=== PATIENT | male | born 1980 | race Caucasian/White ===

== ENCOUNTER → 2023-07-21 10:29 | Outpatient (BNVA) | payer MEDICAID, SELFPAY | PROVIDERS: Visit Provider Physician Assistant | DX: M47.816 Spondylosis without myelopathy or radiculopathy, lumbar region (principal) | CPT/HCPCS: 72110 ==

== ENCOUNTER 2023-08-04 06:00 | Outpatient (RCR) | payer MEDICAID, SELFPAY | END 2023-08-24 23:59 | disposition home or self-care (01) | LOC: WPT 06:00 | PROVIDERS: Visit Provider Physician Assistant | DX: M54.50 Low back pain, unspecified (principal); G89.29 Other chronic pain | CPT/HCPCS: 97161 ==

== ENCOUNTER → 2023-09-30 09:43 | Outpatient (BNVA) | payer MEDICAID, SELFPAY | PROVIDERS: PCP Nurse Practitioner Family; Visit Provider Nurse Practitioner Family | DX: C44.209 Unspecified malignant neoplasm of skin of left ear and external auricular canal (principal); K29.70 Gastritis, unspecified, without bleeding; Z79.899 Other long term (current) drug therapy; Z13.6 Encounter for screening for cardiovascular disorders; E55.9 Vitamin D deficiency, unspecified; M54.50 Low back pain, unspecified; M79.604 Pain in right leg; M79.605 Pain in left leg | CPT/HCPCS: 80053; 80061; 81003; 82306; 83036; 84439; 84443; 84481; 85025; 86376 ==

== ENCOUNTER 2023-10-18 09:54 | Outpatient (CLI) | payer MEDICAID, SELFPAY ==
--- NOTE | 2023-10-18 10:15 | MR_ITS ---
WS: [id number] MRI LUMBAR SPINE NONCONTRAST HISTORY: back pain COMPARISON: None available. TECHNIQUE: Sagittal and axial multisequence imaging is submitted. Very small central disc protrusion at T7-8. Mild straightening of the normal lumbar lordosis. Disc spaces are well-maintained. No fractures. Conus terminates normally at L1-2 disc level. L1-L2: Normal. L2-L3: Mild facet arthritis. No stenosis. L3-L4: Mild annular disc bulging with mild ligamentum flavum and facet arthritis. No stenosis. L4-L5: Annular disc bulging with a central disc protrusion encroaching upon the ventral thecal sac. M ild bilateral central and subarticular recess encroachment. Mild encroachment upon the traversing L5 nerve roots. There is also mild bilateral foraminal stenosis with the disc contacting the exiting L4 nerve roots. L5-S1: Mild annular disc bulging encroaching upon the subarticular recesses. Shallow RIGHT foraminal disc protrusion with annular fissure contacting the RIGHT exiting L5 nerve root. Mild RIGHT foraminal stenosis. Visualized retroperitoneum is negative. IMPRESSION: 1. RIGHT foraminal disc protrusion with annular fissure at L5-S1 with contact on the exiting RIGHT L 5 nerve root. 2. Mild annular disc bulging at L3-4 and L5-S1. 3. L4-5: Central disc protrusion and facet arthritis. Mild central and bilateral subarticular recess encroachment. There is mild disc contact on the traversing L5 nerve roots and mild bilateral foramin al stenosis.
== END 2023-10-18 09:55 | disposition home or self-care (01) ==
LOC: RAD 09:54
PROVIDERS: PCP Nurse Practitioner Family; Visit Provider Orthopaedic Surgery
DX: M54.50 Low back pain, unspecified (principal); M79.604 Pain in right leg; M79.605 Pain in left leg; M51.37 Other intervertebral disc degeneration, lumbosacral region; M48.07 Spinal stenosis, lumbosacral region
CPT/HCPCS: 72148

== ENCOUNTER → 2023-12-22 13:15 | Outpatient (BNVA) | payer MEDICAID, SELFPAY | PROVIDERS: PCP Nurse Practitioner Family; Visit Provider Orthopaedic Surgery | DX: M54.2 Cervicalgia (principal) | CPT/HCPCS: 72050 ==

== ENCOUNTER → 2024-01-03 14:47 | Outpatient (BNVA) | payer MEDICAID, SELFPAY | PROVIDERS: PCP Nurse Practitioner Family; Visit Provider Orthopaedic Surgery | DX: M54.9 Dorsalgia, unspecified (principal); M48.062 Spinal stenosis, lumbar region with neurogenic claudication; M51.16 Intervertebral disc disorders with radiculopathy, lumbar region; Z79.899 Other long term (current) drug therapy | CPT/HCPCS: 36415; 80053; 81003; 85025 ==

== ENCOUNTER 2024-01-12 08:45 | Outpatient (CLI) | payer MEDICAID, SELFPAY ==
--- NOTE | 2024-01-12 08:45 | MR_ITS ---
WS: [id number] MRI CERVICAL SPINE NONCONTRAST TECHNIQUE: Sagittal T1, T2 and STIR imaging. Axial T2, gradient, and fiesta imaging. CLINICAL INFORMATION: neck pain COMPARISON: None. FINDINGS: Straightening of the normal cervical lordosis. Cord signal is normal. Mild disc bulging at C3-C4 C4-C 5 C5-C6 and C6-C7. C2-C3: Normal. C3-C4: Shallow central protrusion with mild central canal stenosis and slight contact of the cervical cord. Mild facet arthropathy. Mild LEFT foraminal narrowing. C4-C5: Mild central canal stenosis with LEFT paracentral protrusion with slight indentation of the LE FT ventral cervical cord. Moderate LEFT foraminal narrowing. Moderate facet arthropathy. C5-C6: Mild to moderate central canal stenosis with disc osteophyte complex with slight indentation o n the central and LEFT paracentral cervical cord. Severe LEFT bony foraminal narrowing. Uncovertebral joint hypertrophy. Mild RIGHT bony foraminal narrowing. Moderate facet arthropathy. C6-C7: Shallow central disc bulging with a tiny annular fissure. Spinal canal and foramen are patent. C7-T1: Normal. Visualized brain stem structures: Normal. Prevertebral soft tissues: Normal. MR/MR cervical spin wo con* [id number] IMPRESSION: 1. Straightening of the normal cervical lordosis. Cord signal is normal. 2. Mild central canal stenosis C3-C4 and C4-C5. Slight indentation of the LEFT ventral cervical cord at C4-5 with LEFT paracentral protrusion. 3. Mild to moderate central canal stenosis C5-C6 with disc osteophyte complex and slight indentation of the cervical cord. 4. Moderate LEFT C4-5 and severe LEFT C5-C6 bony foraminal narrowing.
== END 2024-01-12 08:46 | disposition home or self-care (01) ==
PROVIDERS: PCP Nurse Practitioner Family; Visit Provider Orthopaedic Surgery
DX: M48.02 Spinal stenosis, cervical region (principal); M54.2 Cervicalgia
CPT/HCPCS: 72141

== ENCOUNTER 2024-02-09 12:06 | Emergency (ER) | payer MEDICAID, SELFPAY ==
[2024-02-09 12:37] VITALS: BP 124/85; PULSE 72; TEMP 37.4; O2SAT 98; BMI 25.0
--- NOTE | 2024-02-09 14:48 | W.ED.BACK ---
HPI - Back Pain/Injury General: Chief Complaint: Back Pain/Injury Stated Complaint: back pain, left side numbness Time Seen by Provider: 02/09/24 14:40 History of Present Illness: 43-year-old male patient comes in today with low back pain. Patient has an extensive history of intervertebral disc disease of his neck and lumbar spine. Patient is actually scheduled to have surgery in 1 week for his low back. Patient reports that he woke up this morning and was bending down to corn picker something off the floor and had a sudden sharp pain on the left side of his back. Patient denies any loss of bowel or bladder control. Patient appears nontoxic. Patient appears in mild to moderate pain. Patient is guarding with movement. Review of Systems General: Reports: 10 or more systems reviewed and unremarkable except in HPI and below Musc: Reports: back pain PFSH ED PFSH: Medical History Vitamin D deficiency Medication management Cancer of skin of left ear Skin cancer Gastritis Family History Mother Pancreatic cancer Father Skin cancer CAD (coronary artery disease) Thyroid cancer Social History Smoking and tobacco/nicotine status: former use of tobacco/nicotine Physical Exam Const: COMMON NORMALS: alert HENMT: COMMON NORMALS: normocephalic HEAD & SCALP: normocephalic Neck/C-Spine: COMMON NORMALS: full ROM Resp: COMMON NORMALS: normal respiratory effort and clear to auscultation bilaterally AUSCULTATION: clear to auscultation bilaterally Cardio: COMMON NORMALS: regular rate RATE: regular rate GI: COMMON NORMALS: Soft to palpation and non-tender PALPATION: Yes Soft to palpation Back/Pelvis: LUMBAR SPINE/LOWER BACK: No lumbar spinal tenderness and Yes paraspinal muscle tenderness Extremity: COMMON NORMALS: normal to inspection Neuro: SENSORIUM/ORIENTATION: Yes alert Skin: COMMON NORMALS: turgor normal GENERAL SKIN EXAM: turgor normal Course Vital Signs: Vital signs: Vital Signs Temperature 99.3 F 02/09/24 12:37 Pulse Rate 72 02/09/24 12:37 Blood Pressure 124/85 02/09/24 12:37 Pulse Oximetry 98 02/09/24 12:37 Oxygen Delivery Me thod Room Air 02/09/24 12:37 MDM - Back Pain/Injury Medical Decision Making 43-year-old male patient comes in today for complaints of a sharp pain in his back when he bent down to get something off the floor. Patient has a history of intervertebral disc disease and is scheduled for surgery with Dr. Parada. On exam patient appears in mild to moderate pain. Patient appears nontoxic. Respirations are even lungs are clear to auscultation. Skin is warm and dry. Vital signs are normal. Differential diagnosis lumbar strain, intervertebral disc disease, facet arthropathy. Patient was given a injection of ketorolac 30 mg once and 2 mg of Ativan. This was for pain and muscle relaxation. Patient be continued on diclofenac and methocarbamol. Patient was recommended to follow back up with Dr. Parada as scheduled. No falls were reported and no imaging was performed. No radiology studies performed this visit Discharge Plan Discharge Patient Disposition: Home Clinical Impression: Strain of lumbar region Qualifiers: Encounter type: initial encounter Qualified Code(s): S39.012A - Strain of muscle, fascia and tendon of lower back, initial encounter Condition: Stable Prescriptions: New diclofenac sodium 75 mg tablet,delayed release (DR/EC) 75 mg PO BID Qty: 14 0RF Rx Instructions: hold ibuprofen while using medication methocarbamol 750 mg tablet 750 mg PO Q6H PRN (Reason: back pain, muscle spasm) Qty: 30 0RF No Action omeprazole 20 mg capsule,delayed release(DR/EC) See Rx Instructions .ROUTE .COMPLEX Qty: 30 0RF Dose Instruction: TAKE 1 CAPSULE BY MOUTH DAILY Rx Instructions: TAKE 1 CAPSULE BY MOUTH DAILY ibuprofen 800 mg tablet See Rx Instructions .ROUTE .COMPLEX Qty: 60 0RF Dose Instruction: TAKE 1 TABLET BY MOUTH EVERY 8 HOURS Rx Instructions: TAKE 1 TABLET BY MOUTH EVERY 8 HOURS Discharge Orders: Discharge ED (Routine); Ordered 02/09/24 Ordered By: Jose Calzada Referrals: AURELIA Magdaleno, DIRECTOR OF PRODUCT DEVELOPMENT [Primary Care Provider] - Discharge Diet: Usual diet Discharge Activity: Increase activity as tolerated Patient Instructions: Back Pain (ED) Activity Restrictions/Additional Instructions: Try to maintain normal activity is much as possible. Gentle stretching and range of motion exercises. Drink plenty of water and fluids. Continue care with Dr. Parada as directed. 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
[2024-02-09] MEDS: LORazepam 2 mg/mL INJ 1 mL IM (15:17)
[2024-02-09] MEDS: ketorolac 30 mg/mL INJ IM (15:17)
[2024-02-09 15:49] VITALS: BP 121/82; PULSE 69; RESP 16; TEMP 37.4; O2SAT 99
== END 2024-02-09 15:39 | disposition home or self-care (01) ==
PROVIDERS: Emergency Provider Nurse Practitioner Family; PCP Nurse Practitioner Family
DX: S39.012A Strain of muscle, fascia and tendon of lower back, initial encounter (principal); Z87.891 Personal history of nicotine dependence; X50.1XXA Overexertion from prolonged static or awkward postures, initial encounter
CPT/HCPCS: 96372; 99284; J1885; J2060

== ENCOUNTER → 2024-02-10 09:55 | Outpatient (BNVA) | payer MEDICAID, SELFPAY | PROVIDERS: PCP Nurse Practitioner Family; Visit Provider Family Medicine | DX: Z01.818 Encounter for other preprocedural examination (principal) | CPT/HCPCS: 80048; 81003; 85025 ==

== ENCOUNTER 2024-02-15 06:37 | Day surgery (SDC) | payer MEDICAID, SELFPAY ==
[2024-02-15] VITALS (15 sets, daily range): BP systolic 113–135; BP diastolic 63–89; PULSE 73–106; RESP 8–25; TEMP 36.6–36.9; O2SAT 94–100
[2024-02-15] MEDS: sodium chloride 0.9% 1,000 ML 30 ML IV (07:19)
--- NOTE | 2024-02-15 08:14 | ANES.PREANE2 ---
Pre-Anesthetic Assessment Height/Weight: Height 1.83 m Weight 83.915 kg Temp Pulse Resp BP Pulse Ox O2 Del Method 98.5 F 80 16 114/89 98 Room Air 02/15/24 07:08 02/15/24 07:08 02/15/24 07:08 02/15/24 07:08 02/15/24 07:08 02/15/24 07:08 Preop Diagnosis: Lumbar stenosis with neurogenic claudication Operation Date: 02/15/24 08:55 Proposed Procedures p Lumbar Spine Decompression Lumbar Decompression(Not Applicable) - Sachin Parada, DO Familial anesthetic complications: None Was Beta Trevor taken within 24 hours: N/A Was Clonidine taken within 24 hours: N/A Last intake: Intake Last Liquid Date 02/14/24 Last Liquid Time 22:00 Last Solid Date 02/14/24 Last Solid Time 21:00 Social Tobacco (vapes) and No alcohol Exam alert, oriented x 3, clear to auscultation bilaterally and regular rate & rhythm GI Patient and state he vomits and gags a lot and has trouble with his stomach, not necessarily related to nausea ( it comes out of the blue ); order for pepcid, bicitra, and reglan pre-op Anesthetic Plan ASA status: 2 Anesthesia: General Risk of > 500 ml blood loss (7ml/kg in children): No Medications/Allergies Home Medications Medication Instructions Recorded Confirmed Last Taken Type diclofenac sodium 75 mg 75 mg PO BID #14 tabs 02/09/24 02/15/24 Unknown Rx tablet,delayed release methocarbamol 750 mg tablet 750 mg PO Q6H PRN back pain, 02/09/24 02/15/24 02/13/24 Rx muscle spasm #30 tabs ibuprofen 800 mg tablet 800 mg PO TID 02/14/24 02/15/24 02/14/24 History omeprazole 20 mg capsule,delayed 20 mg PO DAILY 02/14/24 02/15/24 02/14/24 History release Allergies Allergy/AdvReac Type Severity Reaction Status Date / Time No Known Allergies Allergy Verified 02/14/24 12:33 Current Medications Generic Name Dose Route Start Last Admin Trade Name Freq PRN Reason Stop Dose Admin Sodium Chloride 1,000 mls @ 30 mls/hr 02/15/24 06:45 02/15/24 07:19 Sodium Chloride 0.9% IV 02/16/24 06:44 30 mls/hr .Q24H FRANCISCA Administration PFSH Anesthesia Medical History Vitamin D deficiency Medication management Cancer of skin of left ear Skin cancer Gastritis Family History Mother Pancreatic cancer Father Skin cancer CAD (coronary artery disease) Thyroid cancer Social History Smoking and tobacco/nicotine status: current every day tobacco/nicotine user (vapes) Data Anesthesia Cardiac Studies: No Data to Display
[2024-02-15] MEDS: citric acid-sodium citrate 30 mL UDC PO (08:19)
[2024-02-15] MEDS: famotidine 20 mg/2 mL INJ IVP (08:21)
[2024-02-15] MEDS: metoclopramide 5 mg/mL SDV 2 mL 10 MG IVP (08:24)
--- NOTE | 2024-02-15 08:46 | W.PM.OPSUD ---
Surgery/Procedure H&P Update DATE OF PROCEDURE: February 15, 2024 DATE H&P PERFORMED: 02/10/24 H&P UPDATE INFORMATION: I have reviewed H&P completed within last 30 days, I have examined patient prior to procedure and No changes to prior documentation PREOP DIAGNOSIS: Lumbar stenosis with neurogenic claudication PLANNED PROCEDURE: Operation Date: 02/15/24 08:55 Proposed Procedures p Lumbar Spine Decompression Lumbar Decompression(Not Applicable) - Sachin Parada DO
[2024-02-15] MEDS: ceFAZolin 2,000 MG in sodium chloride 0.9% (plus) 50 ML 100 MG IV (09:09)
[2024-02-15] MEDS: lidocaine-epi 1% 20 mL INJ INJECTION (09:47)
--- NOTE | 2024-02-15 10:36 | PM.OP ---
Operative Report Date of procedure: February 15, 2024 Pre-op diagnosis: Lumbar stenosis with neurogenic claudication Post-op diagnosis: same Procedure done: L4-5 laminectomy with partial facetectomy Surgeon: Sachin Parada DO Estimated blood loss (mL): 10 Procedure: L4-5 laminectomy with partial facetectomy Patient is brought to the operative suite. After undergoing anesthesia they are placed in the prone position. All areas of impingement are well padded. Patient is then prepped and draped in the normal sterile fashion. A skin incision is made over the L4-5 level. This is confirmed under c-arm guidance. A series of dilators are passed and the tubular retractor is docked on the L4 lamina. A bovie is used to clear the soft tissue off the lamina and the L 4/5 facet joint. A high speed bart is then used to perform the laminectomy and take down the medial aspect of the L 4/5 facet joint. A kerrison rongeure was then used to take down the remaining lamina and smooth the edge of the laminectomy up to the point where the ligamentum flavum attaches. Attention was then brought to the medial aspect of the facet joint. The remaining medial aspect of the superior and inferior aspect of the facet joint were taken down with the kerrison from the pedicle of L4 to L 5. The facet joint had significant hypertrophy. Attention was then brought to the Ligamentum Flavum. The ligament was taken down from the lamina of L4 to L5 and out medially to the remaining facet joint. The ligament was thick. The dura was then exposed. The dura was in good repair. The L4 nerve was then traced with a curette out the L4/5 foramen and found to be adequately decompressed. The L5 nerve was traced with a curette around the L5 pedicle. The lateral recess was opened with a kerrison helping to further decompress the L5 nerve. Wound is then irrigated copiously with saline and surgiflo is used to stop any bleeding. The tubular retractor is removed and the wound is closed with vicryl and monocryl suture. Glue is then used to protect the wound. A sterile dressing is then placed. Patient was then placed in the supine position and transferred to the PACU in stable condition.
[2024-02-15] MEDS: HYDROmorphone 1 mg/mL INJ 1 mL 0.5 MG IVP (10:54)
[2024-02-15] MEDS: HYDROcodone-acetaminophen 5-325 mg Tablet 2 TAB PO (11:39)
--- NOTE | 2024-02-15 12:00 | ANE.PACU2 ---
Inpatient post-anesthesia follow up: Airway intact: Yes Vital signs: Temperature 98.5 F Pulse Rate 79 Respiratory Rate 16 Blood Pressure 123/80 Pulse Oximetry 96 Oxygen Delivery Me thod Room Air Oxygen Flow Rate 8 Fraction of Inspir ed Oxygen Hydration adequate: Yes Nausea and vomiting: No Pain level: 1 Mental status: Baseline
--- NOTE | 2024-02-15 13:14 | XR_ITS ---
WS: [id number] XR lumbar spine 2-3V* [id number] REASON FOR EXAM: or pic, decompression FINDINGS: Surgical instrument overlying the right L4-L5 interspace. XR/XR lumbar spine 2-3V* [id number] IMPRESSION: Lumbar level localization and surgery as above.
== END 2024-02-15 12:00 | disposition home or self-care (01) ==
PROVIDERS: PCP Nurse Practitioner Family; Visit Provider Orthopaedic Surgery
PROC: (CPT 63005; principal; 2024-02-15 08:55)
DX: M48.062 Spinal stenosis, lumbar region with neurogenic claudication (principal); F17.290 Nicotine dependence, other tobacco product, uncomplicated
CPT/HCPCS: 63047; 72100; 76000; J0330; J0690; J1100; J1170; J2250; J2405; J2704; J2765; J3010; J3490; J7030

== ENCOUNTER → 2024-03-15 09:26 | Outpatient (BNVA) | payer MEDICAID, SELFPAY | PROVIDERS: PCP Nurse Practitioner Family; Visit Provider Nurse Practitioner Family | DX: R06.00 Dyspnea, unspecified (principal) | CPT/HCPCS: 71046 ==

== ENCOUNTER 2024-03-15 10:59 | Emergency (ER) | payer MEDICAID, SELFPAY ==
[2024-03-15 11:19] VITALS: BP 131/93; PULSE 93; RESP 16; TEMP 36.7; O2SAT 97; BMI 23.6
--- NOTE | 2024-03-15 11:56 | ECG_ITS ---
[facility] Test Date: 2024-03-15 Pat Name: Axel Quinn Department: Room: Gender: Male Paper Sheeter: : 1980 Requested By: Rob Souza Order Number: [id number] [place] MD: Korey Ozuna M.D. Measurements Intervals [place] Rate: 85 P: 0 MI: 0 QRS: 84 QRSD: 97 T: 70 QT: 326 QTc: 388 Interpretive Statements SINUS RHYTHM INCOMPLETE RIGHT BUNDLE BRANCH BLOCK [90+ ms QRS DURATION, TERMINAL R IN V1/V2, 40+ ms S IN I/aVL/V4/V5/V6] No previous ECG available for comparison Electronically Signed On 03-15-2024 18:30:24 CDT by Korey Ozuna M.D. [id number]
--- NOTE | 2024-03-15 11:57 | XR_ITS ---
WS: [id number] Portable AP upright chest, 03/15/2024 Clinical Data: dyspnea/cough Comparison: None. Findings: No nodules, masses or effusions are seen. The heart is normal. The pulmonary vascularity is not increased. No pneumonia or pneumothorax is seen. Monitor leads are on the chest wall. XR/XR chest 1V portable [id number] Impression: Negative chest.
[2024-03-15 12:18] LABS: Basophils # 0.1 10^3/uL (0.0-0.1); Eosinophils # 0.2 10^3/uL (0.0-0.8); Eosinophils % 2.8 %; Hematocrit 49.6 % (37-53); Lymphocytes # 1.7 10^3/uL (0.8-4.8); Lymphocytes % 24.6 %; Mean Corpuscular HGB Conc 33.5 g/dL (30-55); Mean Corpuscular Hemoglobin 29.9 pg (27-33); Mean Corpuscular Volume 89.2 fl (82-101); Mean Platelet Volume 9.2 fL (7.4-10.4); Monocytes # 0.6 10^3/uL (0.2-0.9); Monocytes % 8.6 %; Neutrophils # 4.43 10^3/uL (1.8-7.7); Neutrophils % 62.9 %; Nucleated Red Blood Cells % 0 %; Platelet Count 277 10^3/cmm (157-399); Red Blood Count 5.56 10^6/uL (3.85-5.65); Red Cell Distribution Width 11.6 % (12.1-15.1); White Blood Count 7.06 10^3/uL (3.29-11.43)
[2024-03-15 12:35] LABS: Alanine Aminotransferase 8 U/L (0-41); Albumin Level 4.4 g/dL (3.5-5.2); Alkaline Phosphatase 45 U/L (40-130); Anion Gap 15.8 (5-19); Aspartate Amino Transferase 14 U/L (0-40); Blood Urea Nitrogen 18 mg/dL (6-20); Calcium 8.9 mg/dL (8.5-10.5); Carbon Dioxide 26 mmol/L (22-29); Chloride 101 mmol/L (98-107); Creatinine Clr Calc Pharmacy 107.4288; Globulin 2.1 g/dL (1.3-4.6); Glomerular Filtration Rate 82.3 mL/min (90-130); Glucose 89 mg/dL (65-115); Osmolality Calculated 289 mOsm/kg (285-295); Potassium 3.8 mmol/L (3.5-5.1); Sodium 139 mmol/L (136-145); Total Bilirubin 0.8 mg/dL (0.15-1.2); Total Protein 6.5 g/dL (6.6-8.7); Troponin(5th) Baseline < 6 ng/L (0-15)
[2024-03-15 12:57] LABS: Charge for UA Resulting for Rev
--- NOTE | 2024-03-15 13:13 | W.ED.CHESTPA ---
HPI - Chest Pain General: Chief Complaint: Chest Pain Stated Complaint: sent from dr henderson ekg Time Seen by Provider: 03/15/24 11:56 History of Present Illness: 43-year-old male presents emergency room with complaints of chest pain shortness of breath and dizziness. He relates most of this anxiety has no known history of coronary artery disease or any arrhythmias. He went to his primary care doctors office they were concerned about an abnormal EKG and had him present to the emergency room. He has no chest pain at this time no shortness of breath at this time. No abdominal pain no dysuria urgency or frequency no nausea vomiting or diarrhea. Is not currently short of breath no recent fever sweats or chills or cough. He states he used to vape he thought that may be related to his symptoms so he has stopped vaping. Associated symptoms: Deny abdominal pain, dyspnea, fever(s) or palpitations Related Data Home Medications Medication Instructions Recorded Confirmed amoxicillin 875 mg-potassium 1 tab PO BID 03/15/24 03/15/24 clavulanate 125 mg tablet ibuprofen 800 mg tablet 800 mg PO Q8H PRN Pain 03/15/24 03/15/24 omeprazole 20 mg capsule,delayed 20 mg PO DAILY 03/15/24 03/15/24 release Previous Rx's Medication Instructions Recorded diclofenac sodium 75 mg 75 mg PO BID #14 tabs 02/09/24 tablet,delayed release methocarbamol 750 mg tablet 750 mg PO Q6H PRN back pain, 02/09/24 muscle spasm #30 tabs Bone growth stimulator #1 ea 02/22/24 alprazolam 0.25 mg tablet 0.25 mg PO DAILY PRN anxiety 30 03/15/24 days #30 tabs bupropion HCl 75 mg tablet 75 mg PO BID 30 days #60 tabs 03/15/24 Allergies Allergy/AdvReac Type Severity Reaction Status Date / Time No Known Allergies Allergy Verified 03/15/24 08:44 Review of Systems Const: Denies: fever(s) or chills Card: Reports: chest pain; Denies: palpitations, irregular heart rhythm, edema, swelling of feet/ankles or dyspnea on exertion Resp: Denies: dyspnea GI: Denies: abdominal pain : Denies: dysuria, urinary frequency or urinary urgency Musc: Denies: neck pain or back pain Skin/Breast: Denies: rash PFSH ED PFSH: Medical History (Updated 03/15/24 @ 14:56 by Rob Rouse DO) Shortness of breath Chest pain Anxiety and depression Anxiety Vitamin D deficiency Medication management Cancer of skin of left ear Skin cancer Gastritis Family History Mother Pancreatic cancer Father Skin cancer CAD (coronary artery disease) Thyroid cancer Social History Smoking and tobacco/nicotine status: never used tobacco/nicotine Physical Exam Const: COMMON NORMALS: no acute distress GENERAL APPEARANCE: cooperative and comfortable ORIENTATION/CONSCIOUSNESS: Yes awake, Yes oriented to person, Yes oriented to place and Yes oriented to time HENMT: COMMON NORMALS: normocephalic, atraumatic and hearing grossly normal bilaterally HEAD & SCALP: normocephalic and atraumatic Resp: COMMON NORMALS: normal respiratory effort, No retractions, No use of accessory muscles and clear to auscultation bilaterally AUSCULTATION: clear to auscultation bilaterally Cardio: COMMON NORMALS: regular rate, regular rhythm and No murmurs present (Cardio) RATE: regular rate RHYTHM: regular rhythm GI: COMMON NORMALS: Soft to palpation and No hepatosplenomegaly present AUSCULTATION: Yes normoactive bowel sounds PALPATION: Yes Soft to palpation, No Tenderness to palpation present (GI), No Guarding due to palpation present (GI) and Yes No hepatosplenomegaly present Extremity: COMMON NORMALS: normal to inspection, capillary refill normal, no clubbing, cyanosis or edema, no calf tenderness and no pedal edema Neuro: SENSORIUM/ORIENTATION: Yes oriented to person, Yes oriented to place and Yes oriented to time Skin: COMMON NORMALS: no rashes or lesions noted GENERAL SKIN EXAM: no rashes or lesions noted Course Vital Signs: Vital signs: Vital Signs Temperature 98.1 F 03/15/24 11:19 Pulse Rate 92 03/15/24 14:30 Respiratory Rate 16 03/15/24 11:19 Blood Pressure 124/83 03/15/24 14:30 Pulse Oximetry 98 03/15/24 14:30 Oxygen Delivery Me thod Room Air 03/15/24 13:18 MDM - Chest Pain Medical Decision Making Patient directed here by his primary care doctor he did have right bundle branch block computer read the first EKG is having 10-year-old flutter I do not believe that is the case there were P waves present while he was here he remains in a normal sinus rhythm. He does occasionally get palpitations troponins are negative is not having any further symptoms he states he is intermittently had these symptoms for some time which usually is related to anxiety. At this point I think we can discharge the patient home he does not have any acute coronary syndrome on evaluation. Chest x-ray was normal his other symptoms of dizziness and shortness of breath are associated with that chest discomfort he reported. Will set him up for an outpatient cardiac stress test as well as a 72-hour Holter monitor to evaluate for arrhythmias Medical Records I reviewed the patient's medical records. Lab Data I reviewed the patient's lab results. 03/15/24 12:01 03/15/24 12:01 Radiology Impressions Chest X-Ray 03/15/24 11:57 Impression: Negative chest. Laboratory Results WBC 7.06 10^3/uL (3.29-11.43) 03/15/24 12:01 RBC 5.56 10^6/uL (3.85-5.65) 03/15/24 12:01 Hgb 16.60 g/dL (11.27-16.99) 03/15/24 12:01 Hct 49.6 % (37-53) 03/15/24 12:01 MCV 89.2 fl (82-101) 03/15/24 12:01 MCH 29.9 pg (27-33) 03/15/24 12:01 MCHC 33.5 g/dL (30-55) 03/15/24 12:01 RDW 11.6 % (12.1-15.1) L 03/15/24 12:01 Plt Count 277 10^3/cmm (157-399) 03/15/24 12:01 MPV 9.2 fL (7.4-10.4) 03/15/24 12:01 Neut % (Auto) 62.9 % 03/15/24 12:01 Lymph % (Auto) 24.6 % 03/15/24 12:01 Mccone % (Auto) 8.6 % 03/15/24 12:01 Eos % (Auto) 2.8 % 03/15/24 12:01 Baso % (Auto) 1.0 % 03/15/24 12:01 Neut # (Auto) 4.43 10^3/uL (1.8-7.7) 03/15/24 12:01 Lymph # (Auto) 1.7 10^3/uL (0.8-4.8) 03/15/24 12:01 Mccone # (Auto) 0.6 10^3/uL (0.2-0.9) 03/15/24 12:01 Eos # (Auto) 0.2 10^3/uL (0.0-0.8) 03/15/24 12:01 Baso # (Auto) 0.1 10^3/uL (0.0-0.1) 03/15/24 12:01 Nucleated RBC % (auto) 0 % 03/15/24 12:01 Nucleated RBCs # 0.0 /100WBC 03/15/24 12:01 Sodium 139 mmol/L (136-145) 03/15/24 12:01 Potassium 3.8 mmol/L (3.5-5.1) 03/15/24 12:01 Chloride 101 mmol/L (98-107) 03/15/24 12:01 Carbon Dioxide 26 mmol/L (22-29) 03/15/24 12:01 Anion Gap 15.8 (5-19) 03/15/24 12:01 BUN 18 mg/dL (6-20) 03/15/24 12:01 Creatinine 1.0 mg/dL (0.7-1.2) 03/15/24 12:01 GFR Calculation 82.3 mL/min (90-130) L 03/15/24 12:01 Glucose 89 mg/dL (65-115) 03/15/24 12:01 Calculated Osmolality 289 mOsm/kg (285-295) 03/15/24 12:01 Calcium 8.9 mg/dL (8.5-10.5) 03/15/24 12:01 Total Bilirubin 0.8 mg/dL (0.15-1.2) 03/15/24 12:01 AST 14 U/L (0-40) 03/15/24 12:01 ALT 8 U/L (0-41) 03/15/24 12:01 Alkaline Phosphatase 45 U/L (40-130) 03/15/24 12:01 Troponin T Baseline < 6 ng/L (0-15) 03/15/24 12:01 Troponin T 120 Minute 6.00 ng/L (0-15) 03/15/24 14:12 Delta Troponin T 0.05623 ABS# (0-10) 03/15/24 14:12 Total Protein 6.5 g/dL (6.6-8.7) L 03/15/24 12:01 Albumin 4.4 g/dL (3.5-5.2) 03/15/24 12:01 Globulin 2.1 g/dL (1.3-4.6) 03/15/24 12:01 Urine Color Dark yellow (Yellow) A 03/15/24 12:42 Urine Appearance Clear (CLEAR) 03/15/24 12:42 Urine pH 7.5 (5-7) 03/15/24 12:42 Ur Specific [place] 1.030 (1.005-1.030) 03/15/24 12:42 Urine Protein 1+ (Negative) A 03/15/24 12:42 Urine Glucose (UA) Negative (Normal) 03/15/24 12:42 Urine Ketones 1+ (Negative) H 03/15/24 12:42 Urine Blood Negative (Negative) 03/15/24 12:42 Urine Nitrate Negative (Negative) 03/15/24 12:42 Urine Bilirubin Negative (Negative) 03/15/24 12:42 Urine Urobilinogen 1.0 mg/dL (Negative) 03/15/24 12:42 Ur Leukocyte Esterase Negative (Negative) 03/15/24 12:42 Urine RBC 0-2 /hpf (0-2) 03/15/24 12:42 Urine WBC 0-5 /hpf (0-5) 03/15/24 12:42 Ur Squamous Epith Cells 0-5 /hpf (0-5) 03/15/24 12:42 Amorphous Sediment Not Reportable 03/15/24 12:42 Urine Bacteria None seen /hpf (NONE) 03/15/24 12:42 Hyaline Casts 1.21 /lpf 03/15/24 12:42 All radiology interpretation(s) finalized by discharge Clincial Decision Support The following clinical decision support tools were used to aid in care of the patient HEART Score -> History: Slightly Suspicous, EKG: Normal, Age: Less than 45 yrs, Risk Factors: No Risk Factors Known, Troponin: Baseline Trop <16 ng/L. Resulting HEART Score: 0. Discharge Plan Discharge Patient Disposition: Home Clinical Impression: Atypical chest pain, Anxiety Condition: Stable Prescriptions: No Action alprazolam 0.25 mg tablet 0.25 mg PO DAILY PRN (Reason: anxiety) 30 Days Qty: 30 0RF bupropion HCl 75 mg tablet 75 mg PO BID 30 Days Qty: 60 0RF Rx Instructions: Take 1 tab daily for 1 week and can increase to twice a day as needed (DME) Bone growth stimulator See Rx Instructions .Route .MEDSUPPLY Qty: 1 0RF Rx Instructions: As directed amoxicillin-pot clavulanate 875-125 mg tablet 1 tab PO BID ibuprofen 800 mg tablet 800 mg PO Q8H PRN (Reason: Pain) omeprazole 20 mg capsule,delayed release(DR/EC) 20 mg PO DAILY diclofenac sodium 75 mg tablet,delayed release (DR/EC) 75 mg PO BID Qty: 14 0RF Rx Instructions: hold ibuprofen while using medication methocarbamol 750 mg tablet 750 mg PO Q6H PRN (Reason: back pain, muscle spasm) Qty: 30 0RF Discharge Orders: Discharge ED (Routine); Ordered 03/15/24 Ordered By: Rob Rouse Referrals: AURELIA Magdaleno, REHABILITATION THERAPY TECHNICIAN [Primary Care Provider] - Patient Instructions: Opioid Safety, Pain Management Activity Restrictions/Additional Instructions: Thank you for choosing [facility] for your healthcare needs today. It is very important that you follow up as instructed or that you return to the Emergency Department should you have concerns or if your condition changes or worsens in any way. You were seen emergency room with complaint of chest discomfort. Your cardiac enzymes were normal EKG was normal you have mentioned that you have been intermittently with palpitations recommend to get a 72-hour Holter monitor to evaluate for any arrhythmias. Additionally we will set you up for an outpatient graded exercise stress test to further evaluate your heart. Coding Level of Care Code ED Act Tutor for Jam Finney
[2024-03-15 13:17] LABS: Bilirubin Urine Negative (Negative); Blood Urine Negative (Negative); Glucose Urine UA Negative (Normal); Ketones Urine 1+ (Negative); Leukocyte Esterase Urine Negative (Negative); Nitrate Urine Negative (Negative); Protein Urine 1+ (Negative); Urine Appearance Clear (CLEAR); Urine Color Dark Yellow (Yellow); pH Urine 7.5 (5-7)
[2024-03-15 13:18] VITALS: BP 128/65; PULSE 73; O2SAT 98
[2024-03-15 13:22] LABS: Bacteria Urine None Seen /hpf; Hyaline Casts Urine 1.21 /lpf; RBC Urine 0-2 /hpf (0-2); Squamous Epithelial Cell Urine 0-5 /hpf (0-5); WBC Urine 0-5 /hpf (0-5)
--- NOTE | 2024-03-15 14:24 | ECG_ITS ---
[facility] Test Date: 2024-03-15 Pat Name: Axel Quinn Department: Room: Gender: Male Title Curative Specialist: : 1980 Requested By: Rob Souza Order Number: [id number] Francisca MD: Korey Ozuna M.D. Measurements Intervals [place] Rate: 71 P: 27 VT: 149 QRS: 71 QRSD: 102 T: 60 QT: 348 QTc: 379 Interpretive Statements SINUS RHYTHM MINIMAL VOLTAGE CRITERIA FOR LVH, CONSIDER NORMAL VARIANT [MEETS CRITERIA IN ONE OF: R(aVL), S(V1), R(V5), R(V5/V6)+S(V1)] Compared to ECG 03/15/2024 11:12:13 Atrial flutter no longer present Incomplete right bundle-branch block no longer present Electronically Signed On 03-15-2024 18:31:40 CDT by Korey Ozuna M.D. [id number]
[2024-03-15 14:30] VITALS: BP 124/83; PULSE 92; O2SAT 98
[2024-03-15 14:43] LABS: Troponin 5 2HR Delta 0.00001 ABS# (0-10)
[2024-03-15 15:05] VITALS: BP 130/92; PULSE 73; O2SAT 97
--- NOTE | 2024-03-15 15:18 | DCPLANNER ---
messaged heart care for er f/u and faxed stress test order to scheduling
== END 2024-03-15 15:05 | disposition home or self-care (01) ==
PROVIDERS: Emergency Provider Family Medicine; PCP Nurse Practitioner Family
DX: R07.89 Other chest pain (principal); F41.9 Anxiety disorder, unspecified
CPT/HCPCS: 36415; 71045; 80053; 81003; 81015; 84484; 85025; 93005; 99285

== ENCOUNTER 2024-03-22 08:21 | Outpatient (CLI) | payer MEDICAID, SELFPAY ==
--- NOTE | 2024-03-22 | ECG_ITS ---
[facility] Test Date: 2024-03-22 Pat Name: Axel Quinn Department: Room: Gender: Male Paste Up Artist Apprentice: Zenaida New : 1980 Requested By: Rob Souza Order Number: [id number] Francisca MD: Korey Ozuna M.D. Interpretive Statements NAME OF STUDY: TREADMILL STRESS TEST INDICATION: [Atypical Chest Pain, ] EXERCISE DATA: The patient was exercised by Guido protocol. Baseline heart rate was 89 beats per minute. Baseline blood pressure was 132/84 millimeters of mercury. Maximal predicted heart rate was 179 beats per minute. Maximum heart rate achieved was 176, which was 98 % of the maximum predicted heart rate. Maximum blood pressure was 155/48 millimeters of mercury. Total exercise time was 11 minutes and 28 seconds. Maximum METs achieved was 13.5. The reason for ending the test was maximal effort achieved. The patient complained of shortness of breath during the stress test, which then resolved at the end of the test. ELECTROCARDIOGRAM: BASELINE: Showed sinus rhythm, normal axis, no significant ST-T changes at the baseline noted. [] EXERCISE: At the peak exercise level, [] No significant ST-T changes suggestive of ischemia noted. [] RECOVERY: During the recovery period, heart rate dropped appropriately. No significant ST-T changes in the recovery suggestive of ischemia noted. [] CONCLUSION: 1. Exercise capacity is excellent 2. Heart rate response was appropriate. 3. Blood pressure response was appropriate 4. Symptoms not suggestive of ischemia. 5. Stress test does not show evidence of ischemia Electronically Signed On 03-23-2024 19:56:21 CDT by Korey Ozuna M.D. [id number]
[2024-03-22 08:25] VITALS: BMI 23.7
[2024-03-22 09:03] VITALS: BP 130/90; PULSE 105
== END 2024-03-22 08:22 | disposition home or self-care (01) ==
PROVIDERS: PCP Nurse Practitioner Family; Visit Provider Family Medicine
DX: R07.89 Other chest pain (principal)
CPT/HCPCS: 93017

== ENCOUNTER 2024-08-30 10:45 | Outpatient (CLI) | payer MEDICAID, SELFPAY ==
--- NOTE | 2024-08-30 10:48 | MR_ITS ---
WS: [id number] MRI LUMBAR SPINE NONCONTRAST TECHNIQUE: Sagittal T1, T2 and STIR imaging. Axial T1 and T2 imaging. CLINICAL INFORMATION: LUMBOSACRAL RADICULOPATHY COMPARISON: MRI 10/18/23 FINDINGS: Mild lumbar curve. No acute compression. No high-grade central canal stenosis. Disc bulging worse at L4-5. L1-L2: Mild annular bulging. Mild facet arthropathy. L2-L3: Mild facet arthropathy. Spinal canal and foramen are patent. L3-L4: Mild annular bulging. Slight effacement of the ventral thecal sac. Mild RIGHT greater than LEFT foraminal narrowing. Slight contact of the exiting RIGHT L3 nerve root. Mild facet arthropathy. L4-L5: Mild annular bulging. Slight narrowing of the subarticular recess bilaterally. Mild RIGHT greater than LEFT foraminal narrowing. Interval LEFT hemilaminectomy. L5-S1: Small RIGHT foraminal protrusion with slight impingement on the exiting RIGHT L5 nerve root laterally. This appears progressed compared to previous. Mild to moderate facet arthropathy. Visualized pelvic bony structures: Normal. Paravertebral soft tissues: Normal. MR/MR lumbar spine wo con* [id number] IMPRESSION: 1. Progressed small RIGHT foraminal protrusion L5-S1 with slight impingement o n the exiting RIGHT L5 nerve root laterally. 2. Annular bulging L4-5 with narrowing of the subarticular recess bilaterally. Interval hemilaminectomy at this level. RIGHT foraminal protrusion slightly im pinges the exiting RIGHT L4 nerve root. Moderate facet arthropathy. 3. Small RIGHT foraminal protrusion L3-4 slightly contacts the exiting RIGHT L 3 nerve root.
== END 2024-08-30 10:46 | disposition home or self-care (01) ==
LOC: RAD 10:47
PROVIDERS: PCP Family Medicine; Visit Provider Family Medicine
DX: M54.17 Radiculopathy, lumbosacral region (principal); M51.27 Other intervertebral disc displacement, lumbosacral region; M51.360 Other intervertebral disc degeneration, lumbar region with discogenic back pain only; M51.26 Other intervertebral disc displacement, lumbar region; M47.896 Other spondylosis, lumbar region; R93.7 Abnormal findings on diagnostic imaging of other parts of musculoskeletal system; M43.8X6 Other specified deforming dorsopathies, lumbar region; Z98.890 Other specified postprocedural states; M47.897 Other spondylosis, lumbosacral region
CPT/HCPCS: 72148

== ENCOUNTER 2024-10-15 08:24 | Outpatient (RCR) | payer MEDICAID, SELFPAY | END 2024-10-22 23:59 | disposition home or self-care (01) | LOC: SPT 08:24 | PROVIDERS: PCP Family Medicine; Visit Provider Orthopaedic Surgery | DX: M25.561 Pain in right knee (principal); M25.562 Pain in left knee; M25.519 Pain in unspecified shoulder | CPT/HCPCS: 97110; 97161 ==

== ENCOUNTER → 2024-10-16 11:19 | Outpatient (BNVA) | payer MEDICAID, SELFPAY | PROVIDERS: PCP Family Medicine; Referring Provider Orthopaedic Surgery; Visit Provider Physician Assistant | DX: M23.301 Other meniscus derangements, unspecified lateral meniscus, left knee (principal); M25.561 Pain in right knee | CPT/HCPCS: 73560; 73565 ==

== ENCOUNTER 2024-10-23 05:00 | Outpatient (RCR) | payer MEDICAID, SELFPAY | END 2024-11-21 23:59 | disposition home or self-care (01) | LOC: SPT 05:00 | PROVIDERS: PCP Family Medicine; Visit Provider Orthopaedic Surgery | DX: M25.561 Pain in right knee (principal); M25.562 Pain in left knee; M25.511 Pain in right shoulder; M25.512 Pain in left shoulder; G89.29 Other chronic pain | CPT/HCPCS: 97110 ==

== ENCOUNTER → 2024-11-06 07:20 | Outpatient (BNVA) | payer MEDICAID, SELFPAY | PROVIDERS: PCP Family Medicine; Visit Provider Family Medicine | DX: R79.89 Other specified abnormal findings of blood chemistry (principal) | CPT/HCPCS: 80053; 84403 ==

== ENCOUNTER 2024-11-22 05:00 | Outpatient (RCR) | payer MEDICAID, SELFPAY | END 2024-12-22 23:59 | disposition home or self-care (01) | LOC: SPT 05:00 | PROVIDERS: PCP Family Medicine; Visit Provider Orthopaedic Surgery | DX: M25.562 Pain in left knee (principal); M25.561 Pain in right knee; M25.511 Pain in right shoulder; M25.512 Pain in left shoulder | CPT/HCPCS: 97110 ==

== ENCOUNTER 2024-11-23 09:55 | Outpatient (CLI) | payer MEDICAID, SELFPAY ==
--- NOTE | 2024-11-23 10:01 | XR_ITS ---
WS: [id number] Left shoulder, 3 views, 11/23/2024 Clinical Data: LEFT SHOULDER PAIN Comparison: None. Findings: No fractures or dislocations are seen. The AC joint is normal. The adjacent left clavicle, left scapula and ribs are normal. The soft tissues are unremarkable. XR/XR shoulder LT min 2V* [id number] Impression: Negative left shoulder.
== END 2024-11-23 09:56 | disposition home or self-care (01) ==
PROVIDERS: PCP Family Medicine; Visit Provider Family Medicine
DX: Z02.71 Encounter for disability determination (principal)
CPT/HCPCS: 73030

== ENCOUNTER 2024-12-31 07:51 | Outpatient (CLI) | payer MEDICAID, SELFPAY ==
--- NOTE | 2024-12-31 08:00 | MR_ITS ---
WS: [id number] MRI RIGHT KNEE NONCONTRAST TECHNIQUE: Axial PD, coronal PD fat sat, coronal PD, sagittal PD, and sagittal PD fat-sat images obtained. CLINICAL INFORMATION: right knee pain COMPARISON: None. FINDINGS: Distal quadriceps and patellar tendons are intact. Hypertrophic patella. Grade II chondromalacia patella. Normal ACL and PCL. Medial and lateral meniscus are intact. No acute appearing meniscal tears. Medial and collateral ligaments are intact. Normal popliteal fossa. Fibula head is normal. Normal popliteal fossa. MR/MR knee RT wo con* [id number] IMPRESSION: 1. Normal ACL and PCL. 2. Normal medial and lateral meniscus which appear intact. 3. Mild to moderate chondromalacia patella grade 2. 4. No other acute findings. Outbridge grading: grade II: blister-like swelling/fraying of articular cartila ge extending to surface
--- NOTE | 2024-12-31 08:45 | MR_ITS ---
WS: [id number] MRI LEFT KNEE NONCONTRAST TECHNIQUE: Axial PD, coronal PD fat sat, coronal PD, sagittal PD, and sagittal PD fat-sat images obtained. CLINICAL INFORMATION: left knee pain COMPARISON: None. FINDINGS: Distal quadriceps and patella tendons are intact. Normal ACL and PCL. Normal lateral meniscus. Tiny horizontal tear involving the posterior horn medial meniscus. Slight peripheral extrusion of the medial meniscus. Moderate chondromalacia patella. Normal lateral collateral ligament. Normal popliteus. No rmal medial collateral ligament. Normal bone marrow signal in the femoral condyles and tibial plateau. Normal popliteal fossa. MR/MR knee LT wo con* [id number] IMPRESSION: 1. Normal ACL and PCL. 2. Tiny horizontal tear involving the posterior horn medial meniscus. Slight p eripheral extrusion of the medial meniscus. 3. Grade 2-3 chondromalacia patella. 4. Medial and lateral collateral ligaments appear intact. 5. No other acute findings. Outbridge grading: grade III: partial-thickness cartilage loss with focal ulcer ation
== END 2024-12-31 07:52 | disposition home or self-care (01) ==
PROVIDERS: PCP Family Medicine; Visit Provider Student in an Organized Health Care Education/Training Program
DX: M25.561 Pain in right knee (principal); M25.562 Pain in left knee
CPT/HCPCS: 73721

== ENCOUNTER 2025-01-09 09:17 | Outpatient (CLI) | payer MEDICAID, SELFPAY ==
--- NOTE | 2025-01-09 09:32 | MR_ITS ---
WS: [id number] MRI CERVICAL SPINE NONCONTRAST HISTORY: COMPRESSION FX,CERVICAL MYELOPATHY COMPARISON: 01/12/2024 Technique: Multiplanar, multisequence noncontrast imaging of the cervical spine. Very slight straightening of the normal cervical lordosis. C4 retrolisthesis by 2 mm. Disc spaces are all slightly narrowed and desiccated. No marrow edema or chronic fracture identified. Signal within the cervical cord is normal. Visualized posterior fossa is unremarkable. Craniocervical junction, C1 and C2 relationship, odontoid process and soft tissues are normal. C2-C3: Normal. C3-C4: Central and LEFT paracentral to foraminal disc protrusions. Disc protrusions have increased in size since 01/12/2024. Slightly greater contact on the ventral thecal sac with deformity. There is disc contact on the ventral thecal sac. Moderate central with mild foraminal stenosis. C4-C5: Osteophytic ridging with annular disc bulging asymmetric to the LEFT. Bilateral mild facet arthritis. Mild central and LEFT foraminal stenosis. Similar to the prior study. C5-C6: Marked osteophytic ridging with disc bulging and a large broad-based central disc protrusion. Contact and effacement of ventral CSF. Moderate central and LEFT foraminal stenosis. Mild RIGHT foraminal stenosis. C6-C7: Mild annular disc bulging with a central disc protrusion. No significant stenosis. C7-T1: Normal. 8 mm cystic nodule along the RIGHT lateral inferior subglottic airway. MR/MR cervical spin wo con* [id number] IMPRESSION: 1. C3-4: Central and LEFT paracentral disc protrusions contact the ventral cor d. Progressed since the prior study. Moderate central with mild foraminal steno sis. 2. C4-5: Mild central and LEFT foraminal stenosis. Mild deformity of the LEFT lateral thecal sac. 3. C5-6: Moderate central and LEFT foraminal stenosis and mild RIGHT foraminal stenosis due to disc and osteophyte disease. Similar to the prior study. 4. Cystic mass along the RIGHT lateral subglottic airway measures 8 mm. Recomm end evaluation by ENT.
== END 2025-01-09 09:18 | disposition home or self-care (01) ==
PROVIDERS: PCP Family Medicine; Visit Provider Registered Nurse
DX: M54.12 Radiculopathy, cervical region (principal); M48.02 Spinal stenosis, cervical region; M50.322 Other cervical disc degeneration at C5-C6 level; M25.78 Osteophyte, vertebrae; M43.12 Spondylolisthesis, cervical region; M50.321 Other cervical disc degeneration at C4-C5 level; M47.892 Other spondylosis, cervical region; M50.222 Other cervical disc displacement at C5-C6 level; M50.323 Other cervical disc degeneration at C6-C7 level; M50.223 Other cervical disc displacement at C6-C7 level; R93.7 Abnormal findings on diagnostic imaging of other parts of musculoskeletal system; R93.89 Abnormal findings on diagnostic imaging of other specified body structures
CPT/HCPCS: 72141

== ENCOUNTER 2025-01-23 09:54 | Outpatient (CLI) | payer MEDICAID, SELFPAY ==
--- NOTE | 2025-01-23 09:58 | CT_ITS ---
WS: [email or web address] CT cervical spin wo con* [id number] REASON FOR EXAM: CERVICAL MYELOPATHY IV CONTRAST ADMINISTERED: None. TOTAL EXAM DLP: 164.[address] scans at [facility] use at least one of these dose optimization techniques: automated exposure control; mA and/or kV adjustment per patient size (includes targeted exams where dose is matched to clinical indication); or iterative reconstruction. FINDINGS: No significant vertebral body abnormality. Normal odontoid. C4-C5: Moderate narrowing of the disc space. Moderate uncinate osteophytosis with moderate narrowing of the left neuroforamen. Central posterior osteophyte with mild to moderate impingement on the thecal sac slightly left of midline. C5-C6: Moderate narrowing of the disc space. Moderate uncinate osteophytosis with moderate bilateral narrowing of the neural foramina more prominent on the left. Central posterior osteophyte with mild to moderate impingement on the thecal sac midline. Remaining disc spaces and neural foramina intact and relatively well preserved. Normal facet joint alignment with minimal degenerative arthropathy C2-C3 and from C4-C6. CT/CT cervical spin wo con* [id number] IMPRESSION: Degenerative spondylosis of the cervical spine as above. Narrowing of the intervertebral disc spaces and neural foraminal narrowing and thecal sac impingement at C4-C5 and C5-C6 as above.
== END 2025-01-23 09:55 | disposition home or self-care (01) ==
PROVIDERS: PCP Family Medicine; Visit Provider Student in an Organized Health Care Education/Training Program
DX: M47.12 Other spondylosis with myelopathy, cervical region (principal); M48.02 Spinal stenosis, cervical region
CPT/HCPCS: 72125